=== PATIENT | male | born 1960 | race Caucasian/White ===

== ENCOUNTER 2021-01-03 15:53 | Emergency (ER) | payer OTHER ==
[~2021-01-03] VITALS: Ht 160 cm; Wt 93.0 kg
[2021-01-03 16:48] LABS: BASO % 1 % (0-3); EOS # 0.2 x10^3/uL (0.0-0.7); EOS % 2 % (0-3); HEMATOCRIT 39.6 % (39.0-53.0); HEMOGLOBIN 13.6 g/dL (13.0-17.5); LYMPH # 0.9 x10^3/uL (1.0-4.8); LYMPH % 12 % (24-48); MEAN CORPUSCULAR HEMOGLOBIN 32 pg (25-35); MEAN CORPUSCULAR HGB CONC 34 g/dL (31-37); MEAN CORPUSCULAR VOLUME 94 fL (79-100); MONO # 0.7 x10^3/uL (0.0-1.1); MONO % 10 % (0-9); NEUT # 5.3 x10^3uL (1.8-7.7); NEUT % 75 % (31-73); PLATELET COUNT 264 x10^3/uL (140-400); RED BLOOD COUNT 4.21 x10^6/uL (4.30-5.70); RED CELL DISTRIBUTION WIDTH 13.1 % (11.5-14.5); WHITE BLOOD COUNT 7.1 x10^3/uL (4.0-11.0)
[2021-01-03 16:54] LABS: CALCIUM 8.4 mg/dL (8.5-10.1); CREATININE 1.2 mg/dL (0.7-1.3); GFR 62.2; POTASSIUM 3.8 mmol/L (3.5-5.1)
--- NOTE | 2021-01-03 16:58 | RAD ---
AP chest. HISTORY: Chest pain AP view was taken of the chest. Lungs are clear. Heart is normal in size. There is no pleural effusio n. IMPRESSION: 1. No acute infiltrates. Electronically signed by: Tyler Aguero MD (01/03/2021 4:55 PM) [facility]
--- NOTE | 2021-01-03 17:00 | EKG ---
[address] [address] Test Date: 2021-01-03 Test Time: 16:21:26 Pat Name: NICKIE WHITTINGTON Department: Room: Gender: M Conveyor Man: ZANDER : 1960 Requested By: CHARLY SCHREIBER Order Number: [id number] Reading MD: Measurements Intervals [place] Rate: 119 P: 89 MA: 184 QRS: -13 QRSD: 86 T: 43 QT: 312 QTc: 439 Interpretive Statements SINUS TACHYCARDIA COMPLEX(ES) WITH ABERRANT INTRAVENTRICULAR CONDUCTION INTERPOLATED ATRIAL PREMATURE COMPLEX(ES) LEFTWARD AXIS ABNORMAL ECG RI6.02 No previous ECG available for comparison
[2021-01-03 17:07] LABS: ALBUMIN 3.6 g/dL (3.4-5.0); ALBUMIN/GLOBULIN RATIO 1.2 (1.0-1.7); TOTAL BILIRUBIN 0.3 mg/dL (0.2-1.0); TOTAL PROTEIN 6.7 g/dL (6.4-8.2)
--- NOTE | 2021-01-03 17:36 | PHYS DOC ---
Past History Additional Past Medical Histor: Distant history of IV drug use. (CHARLY SCHREIBER APRN) Past Surgical History: Other Additional Past Surgical Histo: hernia, shoulder, knee scope (CHARLY SCHREIBER APRN) Alcohol Use: None Social History Narrative: Clean and sober for 16 years (CHARLY SCHREIBER APRN) Adult General Chief Complaint Chief Complaint: MULTIPLE COMPLAINTS HPI HPI Patient is a 60-year-old male who presents to the emergency department reporting chest pain no shortness of breath after receiving a Covid shot and flu shot yesterday. Patient reports that 2 AM this morning he started to feel "achy ", by 5:55 AM he felt as if fevers and chills were coming on, by 10 AM this morning he felt as if his chest was feeling tight, patient thinks that he might be having a reaction to the vaccinations. Patient describes his chest discomfort as "it is feeling pokey "patient is unable to attach a pain level number to his discomfort today. Patient denies nausea, vomiting, diarrhea, abdominal aches or pains, denies fever or chills at home, reports taking in an insomnia medication, trazodone, Lamictal, and 2 other psychiatric medications. Patient reports seeking primary care in [facility]. Patient denies any other physical complaints or physical concerns. (CHARLY SCHREIBER APRN) Review of Systems Review of Systems 14 body systems of review of systems have been reviewed. See HPI for pertinent positives and negative responses, otherwise all other systems are negative, nonpertinent or noncontributory. Constitutional: Negative except as outlined in HPI above. Skin: Negative except as outlined in HPI above. Eyes: Negative except as outlined in HPI above. HENT: Negative except as outlined in HPI above. Respiratory: Negative except as outlined in HPI above. Cardiovascular: Negative except as outlined in HPI above. GI: Negative except as outlined in HPI above. : Negative except as outlined in HPI above. Musculoskeletal: Negative except as outlined in HPI above. Integument: Negative except as outlined in HPI above. Neurologic: Negative except as outlined in HPI above. Endocrine: Negative except as outlined in HPI above. Lymphatic: Negative except as outlined in HPI above. Psychiatric: Negative except as outlined in HPI above. (CHARLY SCHREIBER APRN) Allergies Allergies Allergies Coded Allergies Type Severity Reaction Last Updated Verified No Known Drug Allergies 9/2/21 No (CHARLY SCHREIBER APRN) Physical Exam Physical Exam Constitutional: Well developed, well nourished, no acute distress, non-toxic appearance. 60-year-old male in no apparent distress. HENT: Normocephalic, atraumatic. Eyes: Conjunctiva normal, no discharge. Neck: Normal range of motion, no stridor. Cardiovascular: No cyanosis appreciated, distal cap refill less than 2 seconds. Tachycardic rate with regular rhythm, heart sounds S1-S2 with auscultation, Lungs & Thorax: Patient is in no respiratory distress, no audible adventitious lung sounds appreciated. Lung sounds clear to auscultate all lung early. Abdomen: Nontender, no abnormalities noted. Skin: Warm, dry, no erythema, no rash. Back: No tenderness, no deformities. Extremities: No tenderness, no cyanosis, no clubbing, ROM intact, no edema. Neurologic: Alert and oriented X 3, normal motor function, normal sensory function, no focal deficits noted. Psychologic: Affect normal, judgement normal, mood normal. (CHARLY SCHREIBER APRN) Current Patient Data Vital Signs Vital Signs Date Time Temp Pulse Resp B/P (MAP) Pulse Ox O2 Delivery O2 Flow Rate FiO2 01/03/21 16:11 98.9 115 22 109/47 95 Lab Results Laboratory Tests Test 01/03/21 16:25 White Blood Count 7.1 x10^3/uL (4.0-11.0) Red Blood Count 4.21 x10^6/uL (4.30-5.70) L Hemoglobin 13.6 g/dL (13.0-17.5) Hematocrit 39.6 % (39.0-53.0) Mean Corpuscular Volume 94 fL (79-100) Mean Corpuscular Hemoglobin 32 pg (25-35) Mean Corpuscular Hemoglobin Concent 34 g/dL (31-37) Red Cell Distribution Width 13.1 % (11.5-14.5) Platelet Count 264 x10^3/uL (140-400) Neutrophils (%) (Auto) 75 % (31-73) H Lymphocytes (%) (Auto) 12 % (24-48) L Monocytes (%) (Auto) 10 % (0-9) H Eosinophils (%) (Auto) 2 % (0-3) Basophils (%) (Auto) 1 % (0-3) Neutrophils # (Auto) 5.3 x10^3uL (1.8-7.7) Lymphocytes # (Auto) 0.9 x10^3/uL (1.0-4.8) L Monocytes # (Auto) 0.7 x10^3/uL (0.0-1.1) Eosinophils # (Auto) 0.2 x10^3/uL (0.0-0.7) Basophils # (Auto) 0.0 x10^3/uL (0.0-0.2) Sodium Level 139 mmol/L (136-145) Potassium Level 3.8 mmol/L (3.5-5.1) Chloride Level 104 mmol/L (98-107) Carbon Dioxide Level 25 mmol/L (21-32) Anion Gap 10 (6-14) Blood Urea Nitrogen 14 mg/dL (8-26) Creatinine 1.2 mg/dL (0.7-1.3) Estimated GFR (Cockcroft-Gault) 62.2 BUN/Creatinine Ratio 12 (6-20) Glucose Level 106 mg/dL (70-99) H Calcium Level 8.4 mg/dL (8.5-10.1) L Total Bilirubin 0.3 mg/dL (0.2-1.0) Aspartate Amino Transferase (AST) 21 U/L (15-37) Alanine Aminotransferase (ALT) 34 U/L (16-63) Alkaline Phosphatase 70 U/L (46-116) Troponin I Quantitative < 0.017 ng/mL (0-0.055) HI-Xiq-L-Type Natriuretic Peptide 22 pg/mL (0-124) Total Protein 6.7 g/dL (6.4-8.2) Albumin 3.6 g/dL (3.4-5.0) Albumin/Globulin Ratio 1.2 (1.0-1.7) (CHARLY SCHREIBER APRN) EKG EKG EKG performed at 1621 by ED nursing staff shows sinus tachycardia heart rate 119 bpm without other ectopy, DC interval 0.184, QT 0.439, no acute STEMI, no ACS, no acute ischemia appreciated, EKG interpreted by ED attending physician Dr. Turner. (CHARLY SCHREIBER APRN) Radiology/Procedures Radiology/Procedures PATIENT: NICKIE WHITTINGTON CACCOUNT: [id number] : 1960 LOCATION: ER AGE: 60 SEX: M EXAM STATUS: REG ER ORD. PHYSICIAN: CHARLY SCHREIBER APRN REASON: Chest pain PROCEDURE: CHEST AP ONLY AP chest. HISTORY: Chest pain AP view was taken of the chest. Lungs are clear. Heart is normal in size. There is no pleural effusion. IMPRESSION: 1. No acute infiltrates. Electronically signed by: Tyler Aguero MD (01/03/2021 4:55 PM) [facility] (CHARLY SCHREIBER APRN) Heart Score C/O Chest Pain: Yes HEART Score for Chest Pain: HEART Score for Chest Pain Response (Comments) Value History Slighlty/Non-Suspicious 0 ECG Normal 0 Age >45 - < 65 1 Risk Factors 1 or 2 Risk Factors 1 Troponin < Normal Limit 0 Total 2 Risk Factors: Risk Factors: DM, Current or recent (<one month) smoker, HTN, HLP, family history of CAD, obesity. Risk Scores: Risk Factors: DM, Current or recent (<one month) smoker, HTN, HLP, family history of CAD, obesity. (CHARLY SCHREIBER APRN) Course & Med Decision Making Course & Med Decision Making Pertinent Labs and Imaging studies reviewed. (See chart for details) 60-year-old male, vital signs reviewed, presents emergency department concerning adverse drug reaction after receiving COVID-19 virus and flu vaccine at the same time today. Patient's physical examination is unremarkable other than a slight tachycardia at 120 bpm, will order cardiorespiratory work-up, normal saline bolus. Patient is EKG, cardiac labs, chest x-ray unremarkable. After 1 L normal saline, patient's vital signs are stable, normal heart rate, patient is in no apparent distress and hemodynamically intact. Patient denies any symptoms at this time and states he feels much better now. Discussed strict return to ER precautions or concerns, follow-up with PCP this week for ongoing symptoms, patient is amenable to ED discharge planning. We will diagnosed with adverse drug reaction Discussed with the patient all findings and diagnostic testing as well as the need to follow-up with their primary care provider for further evaluation and treatment or return to the ED if any new or worsening symptoms. Strict return precautions were also discussed at length, the patient voiced understanding and agreement with the discharge planning. The patient was nontoxic in appearance, in no apparent distress, and hemodynamically stable at the time of disposition. (CHARLY SCHREIBER APRN) Dragon Disclaimer Dragon Disclaimer This electronic medical record was generated, in whole or in part, using a voice recognition dictation system. (CHARLY SCHREIBER APRN) Departure Departure: Impression: Primary Impression: Adverse drug effect Disposition: HOME / SELF CARE / HOMELESS Condition: GOOD Referrals: PCP,NO (PCP) Additional Instructions: You were seen today in the emergency department after experiencing sensations following your COVID-19 virus and flu shot that was given at the same time today. An extensive cardiorespiratory work-up was performed today, your work-up is reassuring as there were no acute findings or concerning findings that would warrant hospitalization. Your symptoms have resolved, as we discussed at length, this is most likely an adverse event related to your immunization administration today. Please follow-up with your primary care doctor for ongoing symptoms, return to the emergency department immediately for increased or worsening symptoms. Thank you for visiting our Emergency Department. It was a pleasure taking care of you today in the emergency department and we appreciate you trusting us with your care. If any additional problems come up don't hesitate to return to visit us. Please follow up with your primary care provider so they can plan additional care if needed and know about the problem that you had. If symptoms worsen come back to the Emergency Department. Any concerning symptoms that start such as chest pain, shortness of air, weakness or numbness on one side of the body, running high fevers or any other concerning symptoms return to the ER. Attending Signature Attending Signature I have participated in the care of this patient and I have reviewed and agree with all pertinent clinical information above including history, exam, and recommendations. (KRISTIN DODSON MD) Problem Qualifiers Primary Impression: Adverse drug effect Encounter type: initial encounter Qualified Codes: T50.905A - Adverse effect of unspecified drugs, medicaments and biological substances, initial encounter CHARLY SCHREIBER APRN Jan 03, 2021 17:36 KRISTIN DODSON MD Jan 07, 2021 08:35
[2021-01-03] MEDS: IV NORMAL SALINE 1,000ML 1,000 ML IV ONE (18:05)
[2021-01-03] MEDS: KETOROLAC 30 MG/ML VIAL. IVP ONE (18:05)
[2021-01-03 18:51] LABS: BACTERIA,URINE 0 /HPF (0-FEW); BILIRUBIN,URINE NEG (NEG); CLARITY,URINE HAZY; COLOR,URINE AMBER; GLUCOSE,URINE NEG (NEG); NITRITE,URINE NEG (NEG); RBC,URINE 0 /HPF (0-2); SQUAMOUS EPITHELIAL CELL,UR OCC /LPF; UROBILINOGEN,URINE 0.2 mg/dL (0.2 mg/dL); WBC,URINE 0 /HPF (0-4)
[2021-01-03 19:40] VITALS: BP 116/50
== END 2021-01-03 19:43 | disposition home or self-care (01) ==
LOC: ER 15:53
DX: R07.9 Chest pain, unspecified (principal); T50.905A Adverse effect of unspecified drugs, medicaments and biological substances, initial encounter; Y92.89 Other specified places as the place of occurrence of the external cause
CPT/HCPCS: 36415; 71045; 80053; 81001; 83880; 84484; 85025; 93005; 96361; 96374; 99285; J1885; J7030

== ENCOUNTER 2021-04-25 20:13 | Emergency (ER) | payer OTHER ==
[~2021-04-25] VITALS: Ht 160 cm; Wt 93.0 kg
[2021-04-25 21:34] VITALS: BP 156/74
--- NOTE | 2021-04-25 21:36 | PHYS DOC ---
Past History Additional Past Medical Histor: Distant history of IV drug use. Past Surgical History: Other Additional Past Surgical Histo: hernia, shoulder, knee scope Alcohol Use: None General Adult EDM: Chief Complaint: FOREIGN BODY/EYES HPI: HPI: .." I was working on car.. about 2pm.. and got some stuff in Lt eye..." " I was using a roll contour grinder to cut off the floor will drive..." I got some metal dust in my left eye."k.. Patient is a 61 year old male who presents with above hx and complaints of foreign body in Lt. eye at 1400 hrs today.. Patient since that time has been rubbing his eye and developed increased discomfort. Pt. states his tetanus is approximately 5 years ago. No acute visual change in left eye. Does have conjunctive injection and some staining. There is consensual pupillary reaction. There is an abrasion to the cornea and inflammation of the sclera.. No recent travel. No history mental suppression. Visual acuity in the left eye is better than right eye at 20/15. Fluorescein uptake in cornea particularly the lateral edge left eye. Lids were lifted and patient's eye was irrigated under pressure with normal saline. Cyclogel , Toradol drops and erythromycin applied. Review of Systems: Review of Systems: Constitutional: Denies fever or chills Eyes: Complains of foreign body in left eye HENT: Denies nasal congestion or sore throat Respiratory: Denies cough or shortness of breath Cardiovascular: Denies chest pain or edema GI: Denies abdominal pain, nausea, vomiting, bloody stools or diarrhea : Denies dysuria Musculoskeletal: Denies back pain or joint pain Integument: Denies rash Neurologic: Denies headache, focal weakness or sensory changes Endocrine: Denies polyuria or polydipsia Lymphatic: Denies swollen glands Psychiatric: Denies depression or anxiety Family History: Family History: Noncontributory to presentation Current Medications: Current Meds: See nursing for home meds Allergies: Allergies: Allergies Coded Allergies Type Severity Reaction Last Updated Verified No Known Drug Allergies 01/03/21 No Physical Exam: PE: Constitutional: Moderate acute distress, non-toxic appearance. [] HENT: Normocephalic, atraumatic, bilateral external ears normal, oropharynx moist, no oral exudates, nose normal. [] Eyes: PERRLA, EOMI, conjunctiva injected and the the left eye, no discharge. [] Exam as per HPI Neck: Normal range of motion, no tenderness, supple, no stridor. [] Cardiovascular:Heart rate regular rhythm, no murmur [] Lungs & Thorax: Bilateral breath sounds equal apex scattered wheeze auscultation [] Abdomen: Bowel sounds normal, soft, no tenderness, no masses, no pulsatile masses. [] Skin: Warm, dry, no erythema, no rash. [] Back: No tenderness, no CVA tenderness. [] Extremities: No tenderness, no cyanosis, no clubbing, ROM intact, no edema. [] Neurologic: Alert and oriented X 3, normal motor function, normal sensory function, no focal deficits noted. [] Psychologic: Affect normal, judgement normal, mood normal. [] EKG: EKG: [] Radiology/Procedures: Radiology/Procedures: [] Heart Score: C/O Chest Pain: N/A Risk Factors: Risk Factors: DM, Current or recent (<one month) smoker, HTN, HLP, family history of CAD, obesity. Risk Scores: Score 0 - 3: 2.5% MACE over next 6 weeks - Discharge Home Score 4 - 6: 20.3% MACE over next 6 weeks - Admit for Clinical Observation Score 7 - 10: 72.7% MACE over next 6 weeks - Early Invasive Strategies Course & Med Decision Making: Course & Med Decision Making Pertinent Labs and Imaging studies reviewed. (See chart for details) Patient to stop rubbing eye. Patient to use erythromycin ointment very small amount 4 times a day. Patient may use Toradol eyedrops 2 drops left eye 4 times a day. Patient take Tylenol and ibuprofen as needed for pain. Marked pain may take Vicoprofen. Must follow-up with ophthalmology tomorrow. Return if increased redness or pain or decreased vision. If unable to get into Dr. King- present to ED that has peritoneal dialysis registered nurse ophtalmologist. Impression: 1. Hx. Foreign Body- Rust / metal fragments into Lt. eye 2. Corneal Abrasion 3. Chemical conjunctivitis [] Dragon Disclaimer: Dragon Disclaimer: This electronic medical record was generated, in whole or in part, using a voice recognition dictation system. Departure Departure: Referrals: PCP,NO (PCP) Scripts Hydrocodone/Ibuprofen (HYDROCODONE-IBUPROFEN 7.5-200 ) 1 Each Tablet 2 TAB PO PRN Q6HRS PRN for PAIN, #30 TAB 0 Refills Prov: KRISTIN DODSON MD 04/25/21 Denia Disclaimer This chart was dictated in whole or in part using Voice Recognition software in a busy, high-work load, and often noisy Emergency Department environment. It may contain unintended and wholly unrecognized errors or omissions. KRISTIN DODSON MD Apr 25, 2021 21:36
[2021-04-25] MEDS ORDERED: KETOROLAC TROMETHAMINE 0.5% OPHTH SOLUTION BOTTLE. OS SCH (23:12)
[2021-04-25] MEDS ORDERED: DIPH,PERTUSS(ACELL),TET VAC/PF 0.5 ML SYRINGE. VAX IM ONE (23:15)
[2021-04-25] MEDS ORDERED: CYCLOPENTOLATE 1% OPTH SOLUTION 2ML BOTTLE. OS ONE (23:15)
[2021-04-25] MEDS ORDERED: HYDROcodon/IBUPROFEN 7.5/200MG 1 TAB TABLET PO ONE (23:15)
[2021-04-25] MEDS ORDERED: ERYTHROMYCIN 0.5% OPHTH OINTMENT 1GM TUBE. OS ONE (23:15)
[2021-04-25] MEDS ORDERED: HYDR-1179 PO (23:23)
[2021-04-25] MEDS ORDERED: MORPHINE SULFATE 10 MG/ML SYRINGE. SQ ONE (23:30)
[2021-04-25] MEDS ORDERED: KETOROLAC 60 MG/2 ML VIAL. IM ONE (23:30)
== END 2021-04-26 00:15 | disposition home or self-care (01) ==
LOC: ER 20:13
DX: S05.02XA Injury of conjunctiva and corneal abrasion without foreign body, left eye, initial encounter (principal); H10.212 Acute toxic conjunctivitis, left eye; X58.XXXA Exposure to other specified factors, initial encounter; Y93.89 Activity, other specified; Y92.89 Other specified places as the place of occurrence of the external cause; Y99.8 Other external cause status
CPT/HCPCS: 90471; 90715; 96372; 99284; J1885; J2270